=== PATIENT | male | born 1945 | race Caucasian/White ===

== ENCOUNTER → 2017-03-06 | Outpatient (REF) | payer BC, OTHER ==
[2017-03-07 15:10] LABS: SJOGREN'S ANTI SS-A <0.2 AI (0.0-0.9); SJOGREN'S ANTI SS-B <0.2 AI (0.0-0.9)
== END ==
LOC: M LAB REF 12:41
PROVIDERS: ATTEND Nurse Practitioner Family
DX: M35.3 Polymyalgia rheumatica (principal)

== ENCOUNTER → 2018-04-21 | Outpatient (REF) | payer OTHER, BC | LOC: M SMT 09:29 | DX: R97.20 Elevated prostate specific antigen [PSA] (principal); Z79.899 Other long term (current) drug therapy | CPT/HCPCS: 87086 ==

== ENCOUNTER → 2018-05-04 | Outpatient (CLI) | payer OTHER, MEDICARE | LOC: M SMT PRO 09:11 | DX: C61 Malignant neoplasm of prostate (principal) | CPT/HCPCS: G0416 ==

== ENCOUNTER → 2018-06-28 | Outpatient (CLI) | payer OTHER, BC, MEDICARE ==
[2018-06-28 13:00] LABS: HEMATOCRIT 39.4 % (42.0-52.0); MEAN CORPUSCULAR HEMOGLOBIN 31.6 pg (27.0-33.0); MEAN CORPUSCULAR VOLUME 95.9 fl (80.0-96.0); PLATELET COUNT, AUTOMATED 216 10^3/uL (150-450); RED BLOOD COUNT 4.11 10^6/uL (4.30-6.10); RED CELL DISTRIBUTION WIDTH 12.2 % (11.5-14.5)
[2018-06-28 13:12] LABS: ANION GAP 8 MEQ/L (8-16); BLOOD UREA NITROGEN 19 MG/DL (7-18); CALCIUM LEVEL 8.9 MG/DL (8.8-10.2); CARBON DIOXIDE LEVEL 33 MEQ/L (21-32); CHLORIDE LEVEL 102 MEQ/L (98-107); GLOMERULAR FILTRATION RATE > 60.0 (>42); GLUCOSE, FASTING 139 MG/DL (70-100); POTASSIUM SERUM 3.5 MEQ/L (3.5-5.1); SODIUM LEVEL 143 MEQ/L (136-145)
[2018-06-28 13:17] LABS: INR 0.91; PROTHROMBIN TIME 12.3 SECONDS (12.1-14.4)
[2018-06-28 13:18] LABS: PARTIAL THROMBOPLASTIN TIME 26.2 SECONDS (25.4-37.6)
== END ==
LOC: M SMT 09:55
DX: Z01.818 Encounter for other preprocedural examination (principal); N39.0 Urinary tract infection, site not specified; C61 Malignant neoplasm of prostate
CPT/HCPCS: 80048

== ENCOUNTER 2018-07-23 05:40 | Inpatient (IN) | payer OTHER ==
[2018-07-23] MEDS: HEPARIN SOD (PORCINE) 5000 UNITS/ML VIAL SQ ×2 (06:00→07:50)
[2018-07-23] MEDS: LR 1,000 ML IV ×2 (06:23→15:30)
[2018-07-23] MEDS ORDERED: LIDOCAINE 1% SDV INJ 30 ML VIAL As Ordered (07:05)
[2018-07-23] MEDS ORDERED: BUPIVACAINE HCL 0.25% 30 ML VIAL As Ordered (07:06)
[2018-07-23] MEDS: NS 1,000 ML IV ×2 (07:44→15:44)
[2018-07-23] MEDS ORDERED: ONDANSETRON 4MG/2ML VIAL (J2405) IV ×2 (07:45→15:30)
[2018-07-23] MEDS ORDERED: MORPHINE 4 MG/ML 1ML VIAL/SYRINGE (J2270) IV (07:45)
[2018-07-23] MEDS ORDERED: PERCOCET 5MG/325MG TAB PO (07:45)
[2018-07-23] MEDS ORDERED: HYDROmorphone HCL 2 MG/ML 1ML VIAL (J1170) As Ordered (08:17)
[2018-07-23] MEDS ORDERED: LIDOCAINE 2% INJ 100 MG/5 ML SDV (FOR ANES.) As Ordered (08:17)
[2018-07-23] MEDS ORDERED: PROPOFOL 200 MG/20 ML VIAL As Ordered (08:17)
[2018-07-23] MEDS ORDERED: MIDAZOLAM INJ 2 MG/2 ML VIAL (J2250) As Ordered (08:17)
[2018-07-23] MEDS ORDERED: ONDANSETRON 4MG/2ML VIAL (J2405) As Ordered (08:17)
[2018-07-23] MEDS ORDERED: HYDROCORTISONE 100 MG/2 ML VIAL (J1720) As Ordered (08:17)
[2018-07-23] MEDS ORDERED: HEPARIN SOD (PORCINE) 5000 UNITS/ML VIAL As Ordered (08:17)
[2018-07-23] MEDS ORDERED: fentaNYL 250 MCG/5 ML INJECTION (J3010) As Ordered (08:17)
[2018-07-23] MEDS ORDERED: ROCURONIUM BROMIDE 50 MG/5 ML VIAL As Ordered ×5 (08:17→13:14)
[2018-07-23] MEDS ORDERED: EPINEPHrine 1MG/10ML SYRINGE 1.5IN As Ordered (08:26)
[2018-07-23] MEDS: ASPIRIN 81 MG ENTERIC TAB PO (09:00)
[2018-07-23] MEDS: LOSARTAN 50 MG TAB PO (09:00)
[2018-07-23] MEDS: hydroCHLOROthiazide 25 MG TAB PO (09:00)
[2018-07-23] MEDS ORDERED: PHENYLephrine HCL 500 MCG/5 ML (100MCG/ML) SYRINGE (J2370) As Ordered ×2 (11:58→13:56)
[2018-07-23] MEDS ORDERED: ePHEDrine SULFATE 25 MG/5 ML(5MG/ML) SYRINGE As Ordered ×2 (11:58→12:48)
[2018-07-23] MEDS ORDERED: NEOSTIGMINE 10 MG/10 ML VIAL (J2710) As Ordered (13:18)
[2018-07-23] MEDS ORDERED: GLYCOPYRROLATE INJ 0.2 MG/ML 2 ML VIAL As Ordered ×3 (13:18)
[2018-07-23] MEDS: HEPARIN SOD (PORCINE) 5000 UNITS/ML VIAL SC ×2 (14:00→20:51)
[2018-07-23] MEDS: ceFAZolin SOD 1 GM in D5W MINI-BAG PLUS 50 ML IV ×2 (15:00→20:47)
[2018-07-23] MEDS ORDERED: FUROSEMIDE 100 MG/10 ML VIAL (J1940) As Ordered (15:08)
[2018-07-23] MEDS: fentaNYL 100 MCG/2 ML INJECTION (J3010) IV ×4 (15:40→16:10)
[2018-07-23] MEDS: PERCOCET 5MG/325MG TAB PO (15:50)
[2018-07-23 15:56] LABS: HEMATOCRIT 37.8 % (42.0-52.0); HEMOGLOBIN 12.2 g/dl (13.5-17.5); MEAN CORPUSCULAR HEMOGLOBIN 32.1 pg (27.0-33.0); MEAN CORPUSCULAR HGB CONC 32.3 g/dl (32.0-36.5); MEAN CORPUSCULAR VOLUME 99.5 fl (80.0-96.0); PLATELET COUNT, AUTOMATED 228 10^3/uL (150-450); RED CELL DISTRIBUTION WIDTH 12.5 % (11.5-14.5); WHITE BLOOD COUNT 16.7 10^3/uL (4.0-10.0)
[2018-07-23 16:17] LABS: ANION GAP 8 MEQ/L (8-16); BLOOD UREA NITROGEN 15 MG/DL (7-18); CALCIUM LEVEL 8.3 MG/DL (8.8-10.2); CARBON DIOXIDE LEVEL 29 MEQ/L (21-32); CHLORIDE LEVEL 103 MEQ/L (98-107); CREATININE FOR GFR 1.08 MG/DL (0.70-1.30); GLOMERULAR FILTRATION RATE > 60.0 (>42); GLUCOSE, FASTING 152 MG/DL (70-100); POTASSIUM SERUM 4.8 MEQ/L (3.5-5.1); SODIUM LEVEL 140 MEQ/L (136-145)
[2018-07-23] MEDS: HYDROMORPHONE HCL 0.5 MG/ 0.5 ML SYRINGE (J1170 PER 1) IV (16:18)
[2018-07-23] MEDS: DOCUSATE SODIUM 100 MG CAP PO (20:51)
[2018-07-24] MEDS: NS 1,000 ML IV ×3 (02:13→15:44)
[2018-07-24] MEDS: HEPARIN SOD (PORCINE) 5000 UNITS/ML VIAL SC ×3 (05:07→21:18)
[2018-07-24] MEDS: ceFAZolin SOD 1 GM in D5W MINI-BAG PLUS 50 ML IV (05:08)
[2018-07-24 06:55] LABS: HEMATOCRIT 30.5 % (42.0-52.0); MEAN CORPUSCULAR HGB CONC 32.5 g/dl (32.0-36.5); MEAN CORPUSCULAR VOLUME 98.7 fl (80.0-96.0); PLATELET COUNT, AUTOMATED 194 10^3/uL (150-450); RED BLOOD COUNT 3.09 10^6/uL (4.30-6.10); RED CELL DISTRIBUTION WIDTH 12.6 % (11.5-14.5); WHITE BLOOD COUNT 12.1 10^3/uL (4.0-10.0)
[2018-07-24 07:01] LABS: HEMOGLOBIN 9.9 g/dl (13.5-17.5)
[2018-07-24 07:09] LABS: ANION GAP 6 MEQ/L (8-16); BLOOD UREA NITROGEN 13 MG/DL (7-18); CALCIUM LEVEL 7.9 MG/DL (8.8-10.2); CARBON DIOXIDE LEVEL 31 MEQ/L (21-32); CHLORIDE LEVEL 104 MEQ/L (98-107); CREATININE FOR GFR 0.92 MG/DL (0.70-1.30); GLOMERULAR FILTRATION RATE > 60.0 (>42); GLUCOSE, FASTING 108 MG/DL (70-100); POTASSIUM SERUM 4.3 MEQ/L (3.5-5.1); SODIUM LEVEL 141 MEQ/L (136-145)
[2018-07-24] MEDS: ASPIRIN 81 MG ENTERIC TAB PO (08:49)
[2018-07-24] MEDS: DOCUSATE SODIUM 100 MG CAP PO ×2 (08:50→21:17)
[2018-07-24] MEDS: LOSARTAN 50 MG TAB PO (08:50)
[2018-07-24] MEDS: hydroCHLOROthiazide 25 MG TAB PO (08:51)
[2018-07-24] MEDS: PERCOCET 5MG/325MG TAB PO ×2 (08:57→17:15)
[2018-07-24] MEDS: CIPROFLOXACIN 500 MG TAB PO (12:31)
[2018-07-25] MEDS: HEPARIN SOD (PORCINE) 5000 UNITS/ML VIAL SC (05:26)
[2018-07-25] MEDS: CIPROFLOXACIN 500 MG TAB PO (05:26)
[2018-07-25 06:21] LABS: HEMATOCRIT 27.9 % (42.0-52.0); HEMOGLOBIN 9.1 g/dl (13.5-17.5); MEAN CORPUSCULAR HGB CONC 32.6 g/dl (32.0-36.5); MEAN CORPUSCULAR VOLUME 98.2 fl (80.0-96.0); PLATELET COUNT, AUTOMATED 170 10^3/uL (150-450); RED BLOOD COUNT 2.84 10^6/uL (4.30-6.10); RED CELL DISTRIBUTION WIDTH 12.4 % (11.5-14.5); WHITE BLOOD COUNT 11.5 10^3/uL (4.0-10.0)
[2018-07-25 06:27] LABS: ANION GAP 4 MEQ/L (8-16); BLOOD UREA NITROGEN 11 MG/DL (7-18); CALCIUM LEVEL 8.2 MG/DL (8.8-10.2); CARBON DIOXIDE LEVEL 34 MEQ/L (21-32); CHLORIDE LEVEL 99 MEQ/L (98-107); GLOMERULAR FILTRATION RATE > 60.0 (>42); GLUCOSE, FASTING 94 MG/DL (70-100); POTASSIUM SERUM 3.5 MEQ/L (3.5-5.1); SODIUM LEVEL 137 MEQ/L (136-145)
[2018-07-25] MEDS: ACETAMINOPHEN TAB 650MG DOSE (2X325MG) PO (09:38)
[2018-07-25] MEDS: LOSARTAN 50 MG TAB PO (09:38)
[2018-07-25] MEDS: DOCUSATE SODIUM 100 MG CAP PO (09:39)
[2018-07-25] MEDS: hydroCHLOROthiazide 25 MG TAB PO (09:39)
[2018-07-25] MEDS: ASPIRIN 81 MG ENTERIC TAB PO (09:39)
[2018-07-25 10:08] LABS: SOURCE, BODY FLUID CREATININE PERITONEAL
[2018-07-25] MEDS: COMBIVENT RESPIMAT 100-20MCG INHALER 4GM INH (10:53)
[2018-07-25] MEDS: predniSONE 10 MG TAB PO (11:52)
[2018-07-25] MEDS: PERCOCET 5MG/325MG TAB PO (11:57)
== END 2018-07-25 14:30 | disposition home or self-care (01) | DRG 708 ==
LOC: M OR 05:40 → M MS5PR 17:37
PROC: 0VT04ZZ Resection of Prostate, Percutaneous Endoscopic Approach (ICD-10-PCS; principal; 2018-07-23 07:30)
PROC: 07BC4ZX Excision of Pelvis Lymphatic, Percutaneous Endoscopic Approach, Diagnostic (ICD-10-PCS; 2018-07-23 07:30)
PROC: 8E0W4CZ Robotic Assisted Procedure of Trunk Region, Percutaneous Endoscopic Approach (ICD-10-PCS; 2018-07-23 07:30)
DX: C61 Malignant neoplasm of prostate (principal); I10 Essential (primary) hypertension; E78.00 Pure hypercholesterolemia, unspecified; J44.9 Chronic obstructive pulmonary disease, unspecified; H91.93 Unspecified hearing loss, bilateral; E55.9 Vitamin D deficiency, unspecified; R06.83 Snoring; M35.3 Polymyalgia rheumatica; Z79.82 Long term (current) use of aspirin; Z87.891 Personal history of nicotine dependence; Z79.52 Long term (current) use of systemic steroids; Z79.899 Other long term (current) drug therapy

== ENCOUNTER → 2018-08-02 | Outpatient (CLI) | payer OTHER ==
[~2018-08-02] MED LIST: CYSTO-CONRAY II 17.2% 250ML VIAL (Q9958) As Ordered
== END ==
LOC: M RADPRO 13:07
DX: Z90.79 Acquired absence of other genital organ(s) (principal); N13.8 Other obstructive and reflux uropathy; N32.89 Other specified disorders of bladder
CPT/HCPCS: 51610

== ENCOUNTER → 2018-08-23 | Outpatient (CLI) | payer OTHER ==
[2018-08-23 14:25] LABS: PROSTATIC SPECIFIC AG MONITOR < 0.01 NG/ML (< 4.0)
== END ==
LOC: M WUC 11:54
DX: C61 Malignant neoplasm of prostate (principal)
CPT/HCPCS: 84153

== ENCOUNTER → 2018-11-11 | Outpatient (REF) | payer OTHER ==
[~2018-11-11] MED LIST changes: +ACET1TAB55 PO; +ASPI1CHW2 PO; +ASPI81TA85 PO; +CIPR-249 PO; +COLA100C5 PO; +COMBAER6 INH; -CYSTO-CONRAY II 17.2% 250ML VIAL (Q9958) As Ordered; +HYDR25TAB PO; +LOSA-4 PO; +OXYC1TAB23 PO; +PRED10TA2 PO
== END ==
LOC: M LAB REF 12:33
PROVIDERS: ATTEND Internal Medicine
DX: M35.3 Polymyalgia rheumatica (principal)

== ENCOUNTER → 2018-11-15 | Outpatient (CLI) | payer OTHER ==
[~2018-11-15] MED LIST changes: -LOSA-4 PO; +LOSA100T50 PO
--- NOTE | 2018-11-15 11:24 | REP ---
Clinical: Constipation and abdominal pain. Technique: Upright view of the chest with supine and upright views of the abdomen and pelvis. Findings: Frontal upright view of the chest demonstrates no acute cardiopulmonary process or free air below the diaphragm to suspect pneumoperitoneum. Supine and upright views of the abdomen and pelvis demonstrate nonspecific bowel gas pattern without obstruction or perforation. No organomegaly. No abnormal calcifications. Skeletal structures normal for age. Impression: Nonspecific bowel gas pattern. Electronically Signed by Yomi Vela MD 11/15/2018 11:15 A
== END ==
LOC: M RAD 10:59
PROVIDERS: ATTEND Physician Assistant Medical
DX: R10.9 Unspecified abdominal pain (principal); K59.00 Constipation, unspecified

== ENCOUNTER → 2018-12-07 | Outpatient (CLI) | payer OTHER | LOC: M WUC 10:32 | PROVIDERS: ATTEND Urology | DX: C61 Malignant neoplasm of prostate (principal) ==

== ENCOUNTER → 2019-03-08 | Outpatient (CLI) | payer MEDICARE | LOC: M WUC 15:08 | PROVIDERS: ATTEND Urology | DX: C61 Malignant neoplasm of prostate (principal) ==

== ENCOUNTER → 2019-06-07 | Outpatient (CLI) | payer MEDICARE | LOC: M WUC 11:08 | PROVIDERS: ATTEND Urology | DX: C61 Malignant neoplasm of prostate (principal) ==

== ENCOUNTER → 2019-08-15 | Outpatient (REF) | payer MEDICARE | LOC: M LAB REF 16:12 | PROVIDERS: ATTEND Nurse Practitioner Adult Health | DX: L30.9 Dermatitis, unspecified (principal) ==

== ENCOUNTER → 2019-09-12 | Outpatient (CLI) | payer MEDICARE | LOC: M WUC 11:08 | PROVIDERS: ATTEND Urology | DX: C61 Malignant neoplasm of prostate (principal) ==

== ENCOUNTER → 2019-09-22 | Outpatient (REF) | payer MEDICARE | LOC: M SFHCPLAZ 13:04 | PROVIDERS: ATTEND Dermatology | DX: L80 Vitiligo (principal); D23.5 Other benign neoplasm of skin of trunk | CPT/HCPCS: 11102; 11103; 88305; G0463 ==

== ENCOUNTER → 2019-12-12 | Outpatient (CLI) | payer MEDICARE | LOC: M WUC 10:28 | PROVIDERS: ATTEND Urology | DX: C61 Malignant neoplasm of prostate (principal) ==

== ENCOUNTER → 2020-03-14 | Outpatient (CLI) | payer MEDICARE | LOC: M WUC 12:41 | PROVIDERS: ATTEND Urology | DX: C61 Malignant neoplasm of prostate (principal) ==

== ENCOUNTER → 2020-06-20 | Outpatient (REF) | payer MEDICARE ==
[~2020-06-20] MED LIST changes: -ASPI81TA85 PO; +ASPI81TA86 PO
== END ==
LOC: M WUC 07:13 → M SMT 07:13
PROVIDERS: ATTEND Urology
DX: C61 Malignant neoplasm of prostate (principal)

== ENCOUNTER → 2020-09-17 | Outpatient (CLI) | payer MEDICARE | LOC: M WUC 13:23 | PROVIDERS: ATTEND Urology | DX: C61 Malignant neoplasm of prostate (principal) ==

== ENCOUNTER → 2021-03-27 | Outpatient (CLI) | payer MEDICARE ==
[~2021-03-27] MED LIST changes: +HYDR-3490 PO; -HYDR25TAB PO
== END ==
LOC: M WUC 10:23
PROVIDERS: ATTEND Urology
DX: C61 Malignant neoplasm of prostate (principal)

== ENCOUNTER → 2021-07-25 | Outpatient (CLI) | payer MEDICARE ==
--- NOTE | 2021-07-26 05:47 | REP ---
INDICATION: COUGH COMPARISON: 06/28/2018 TECHNIQUE: PA and lateral. FINDINGS: The mediastinum and cardiac silhouette are normal. Elevation of the left hemidiaphragm appears similar to abdominal x-rays dated 11/15/2018 and likely chronic. The lung vo are clear and without acute consolidation, effusion, or pneumothorax. The skeletal structures are intact and normal. IMPRESSION: No acute cardiopulmonary process. Presumed chronic elevation to the left hemidiaphragm. If the patient remains symptomatic consider chest CT for further investigation. <Electronically signed by Yomi Vela > 07/26/21 [id number]
== END ==
LOC: M RAD 12:35
PROVIDERS: ATTEND Internal Medicine
DX: R05 Cough (principal)

== ENCOUNTER → 2021-08-06 | Outpatient (CLI) | payer MEDICARE ==
--- NOTE | 2021-08-06 08:08 | REP ---
INDICATION: H/O SMOKER AAA SCREENING COMPARISON: None. TECHNIQUE: Real time mendez scale ultrasound examination using curved array transducer. FINDINGS: The abdominal aorta is limited in evaluation due to body habitus and interposed bowel gas. No obvious abdominal aortic aneurysm identified. Proximal aorta: 2.3 x 2.3 cm Aorta at renal arteries: Not visualized cm Mid aorta: 2.0 x 2.1 cm Distal aorta: 1.7 x 1.5 cm Right common iliac artery: Not visualized cm Left common iliac artery: Not visualized cm IMPRESSION: Limited examination. No obvious abdominal aortic aneurysm. <Electronically signed by Yomi Vela > 08/06/21 0816
== END ==
LOC: M RAD 07:08
PROVIDERS: ATTEND Internal Medicine
DX: Z13.6 Encounter for screening for cardiovascular disorders (principal); Z87.891 Personal history of nicotine dependence

== ENCOUNTER → 2021-10-22 | Outpatient (CLI) | payer MEDICARE ==
[~2021-10-22] MED LIST changes: +LOSA100T45 PO; -LOSA100T50 PO
== END ==
LOC: M WUC 10:07
PROVIDERS: ATTEND Urology
DX: C61 Malignant neoplasm of prostate (principal)

== ENCOUNTER → 2022-05-08 | Outpatient (CLI) | payer MEDICARE | LOC: M WUC 10:36 | PROVIDERS: ATTEND Urology | DX: C61 Malignant neoplasm of prostate (principal) ==

== ENCOUNTER → 2022-11-04 | Outpatient (CLI) | payer MEDICARE | LOC: M WUC 11:18 | PROVIDERS: ATTEND Urology | DX: C61 Malignant neoplasm of prostate (principal) ==

== ENCOUNTER → 2023-05-27 | Outpatient (CLI) | payer MEDICARE ==
[~2023-05-27] MED LIST changes: -LOSA100T45 PO; +LOSA100T46 PO
== END ==
LOC: M WUC 13:46
PROVIDERS: ATTEND Urology
DX: C61 Malignant neoplasm of prostate (principal)

== ENCOUNTER → 2023-12-22 | Outpatient (REF) | payer MEDICARE | LOC: M LABWUC 13:37 | PROVIDERS: ATTEND Urology | DX: C61 Malignant neoplasm of prostate (principal) ==

== ENCOUNTER → 2024-03-29 | Outpatient (CLI) | payer MEDICARE | LOC: M RAD 08:18 | PROVIDERS: ATTEND Internal Medicine | DX: Z87.891 Personal history of nicotine dependence (principal) ==

== ENCOUNTER → 2024-06-29 | Outpatient (CLI) | payer MEDICARE | LOC: M WUC 09:08 | PROVIDERS: ATTEND Urology | DX: C61 Malignant neoplasm of prostate (principal) ==

== ENCOUNTER → 2024-12-22 | Outpatient (REF) | payer MEDICARE | LOC: M LABWUC 10:04 | PROVIDERS: ATTEND Urology | DX: C61 Malignant neoplasm of prostate (principal) ==

== ENCOUNTER → 2025-01-03 | Outpatient (REF) | payer MEDICARE | LOC: M SFHCDERM 16:49 | PROVIDERS: ATTEND Physician Assistant | DX: L60.9 Nail disorder, unspecified (principal) ==

== ENCOUNTER → 2025-06-30 | Outpatient (CLI) | payer MEDICARE | LOC: M WUC 10:36 | PROVIDERS: ATTEND Urology | DX: C61 Malignant neoplasm of prostate (principal) ==